=== PATIENT | female | born 1950 | race Asian ===

== ENCOUNTER 2022-11-12 15:16 | Outpatient (CLI) | payer MEDICARE ==
[2022-11-08 15:45] LABS: ALT (SGPT) 18 U/L (8-55); AST (SGOT) 24 U/L (5-34); Albumin 4.3 g/dL (3.4-4.8); Alkaline Phosphatase 78 U/L (40-110); Bilirubin, Direct 0.2 mg/dL (0.1-0.3); Bilirubin, Total 0.5 mg/dL (0.2-1.2); Protein, Total 7.3 g/dL (5.8-8.1)
== END 2022-11-12 15:17 | disposition home or self-care (01) ==
LOC: LABBT 15:16
PROVIDERS: ATTEND Surgery
DX: Z01.818 Encounter for other preprocedural examination (principal); K80.20 Calculus of gallbladder without cholecystitis without obstruction
CPT/HCPCS: 93005; 93010

== ENCOUNTER 2022-11-13 10:02 | Day surgery (SDC) | payer MEDICARE ==
[2022-11-12 16:09] VITALS: BMI 19.5
[2022-11-13] MEDS ORDERED: Bupivacaine 0.25% HCL 30 ML VIAL ONE (11:36)
[2022-11-13] MEDS ORDERED: Indocyanine Green 25 MG/10 ML VIAL ONE (11:36)
[2022-11-13] MEDS ORDERED: EPINEPHrine 1 MG/ML AMP ONE (11:36)
[2022-11-13] MEDS ORDERED: fentaNYL PF 100 MCG/2 ML SYRINGE ONE (12:09)
[2022-11-13] MEDS ORDERED: SUGAMMADEX SODIUM 200 MG/2 ML VIAL ONE (12:09)
[2022-11-13] MEDS ORDERED: CEFAZOLIN 2 GM VIAL ONE (12:30)
[2022-11-13] MEDS ORDERED: Sodium Chloride 0.9% 100 ML ONE (12:32)
[2022-11-13] MEDS ORDERED: Ondansetron PF 4 MG/2 ML Vial ONE (12:43)
[2022-11-13] MEDS ORDERED: Lidocaine 1% PF 5 ML VIAL ONE (12:43)
[2022-11-13] MEDS ORDERED: Dexamethasone 20 MG/5 ML VIAL ONE (12:43)
[2022-11-13] MEDS ORDERED: NEOSTIGMINE 3 MG/3 ML SYR 3 MG/3 ML SYRINGE ONE (12:43)
[2022-11-13] MEDS ORDERED: Glycopyrrolate 0.2 MG/ML 5 ML SYRINGE ONE (12:43)
[2022-11-13] MEDS ORDERED: Rocuronium Bromide 10 MG/ML (10ML VIAL) ONE (12:43)
[2022-11-13] MEDS ORDERED: PROPOFOL 200 MG/20 ML VIAL ONE (12:43)
[2022-11-13] MEDS ORDERED: fentaNYL 50 mcg/mL 1 mL Vial ONE (14:30)
[2022-11-13] MEDS ORDERED: Promethazine HCl 25 MG/ML VIAL ONE (15:50)
[2022-11-13] MEDS ORDERED: Ondansetron ODT 4 MG TAB ONE (17:04)
== END 2022-11-13 17:05 | disposition home or self-care (01) ==
LOC: SDC 10:02
PROVIDERS: ATTEND Surgery
PROC: 0FT44ZZ Resection of Gallbladder, Percutaneous Endoscopic Approach (ICD-10-PCS; principal; 2022-11-13)
DX: K80.10 Calculus of gallbladder with chronic cholecystitis without obstruction (principal); F41.9 Anxiety disorder, unspecified; E78.5 Hyperlipidemia, unspecified; G43.909 Migraine, unspecified, not intractable, without status migrainosus; Z87.59 Personal history of other complications of pregnancy, childbirth and the puerperium; Z90.710 Acquired absence of both cervix and uterus; Z79.84 Long term (current) use of oral hypoglycemic drugs; Z79.899 Other long term (current) drug therapy
CPT/HCPCS: 47562; J3010; 88304; C1776; J0171; J1100; J2405; J2550; J2704; J3490; Q0162; S0020